=== PATIENT | male | born 1975 | race Caucasian/White ===

== ENCOUNTER 2017-10-07 07:38 | Emergency (ER) | payer SELFPAY ==
[~2017-10-07] VITALS: Ht 180.3 cm; Wt 73.0 kg
[2017-10-07 07:45] VITALS: BP 125/70; PULSE 88; RESP 16; TEMP 97.8; O2SAT 100
--- NOTE | 2017-10-07 07:53 | PD ---
HPI Chief Complaint: Syncope/Near-Syncope Time Seen by Provider: 07:46 Travel History International Travel<30 days: No Contact w/Intl Traveler<30days: No Traveled to known affect area: No History of Present Illness HPI LOCATION:sudden onset mason QUALITY:sharp/generalized head SEVERITY: 8/10 TIMING: about 1 hr ago DURATION:acute onset CONTACTS:denies MODIFYING FACTORS:no alleviating/aggravating factors ASSOCIATED TIME AND SYMPTOMS:patient after feeling mason for a few seconds then blacked out, this occurred at work and was witnessed by coworkers who deny seeing any tonic clonic activity, was out for a few seconds, 30sec max all:denies pmhx/pshx: denies any hx PFSH Social History Tobacco Use: No Allergies-Medications (Allergen,Severity, Reaction): Coded Allergies: No Known Allergies (Unverified , 10/07/17) Reported Meds & Prescriptions Reported Meds & Active Scripts Active Fioricet (Lsulebrkhi-Vlxaprxileofv-Ilzkfqfg) 50-300-40 Mg Cap 1-2 Cap PO Q6H PRN Augmentin (Amoxicillin-Clavulanate) 875-125 Mg Tab 1 Tab PO BID 10 Days Review of Systems General / Constitutional: No: Fever Eyes: No: Visual changes HENT: Positive: Headaches Cardiovascular: No: Chest Pain or Discomfort Respiratory: No: Shortness of Breath Gastrointestinal: No: Abdominal Pain Genitourinary: No: Dysuria Musculoskeletal: No: Pain Skin: No Rash Neurologic: Positive: Syncope Psychiatric: No: Depression Endocrine: No: Polydipsia Hematologic/Lymphatic: No: Easy Bruising Physical Exam Narrative GENERAL: male, fluent in macedonian and provided hx as well as followed commands very well SKIN: Warm and dry. HEAD: Atraumatic. Normocephalic. EYES: Pupils equal and round. No scleral icterus. No injection or drainage. ENT: No nasal bleeding or discharge. Mucous membranes pink and moist. NECK: Trachea midline. No JVD. CARDIOVASCULAR: Regular rate and rhythm. RESPIRATORY: No accessory muscle use. Clear to auscultation. Breath sounds equal bilaterally. GASTROINTESTINAL: Abdomen soft, non-tender, nondistended. Hepatic and splenic margins not palpable. MUSCULOSKELETAL: Extremities without clubbing, cyanosis, or edema. No obvious deformities. NEUROLOGICAL: Awake and alert. No obvious cranial nerve deficits. Motor grossly within normal limits. Five out of 5 muscle strength in the arms and legs. Normal speech. PSYCHIATRIC: Appropriate mood and affect; insight and judgment normal. Data Data Last Documented VS Vital Signs Date Time Temp Pulse Resp B/P (MAP) Pulse Ox O2 Delivery O2 Flow Rate FiO2 10/07/17 13:49 77 18 134/72 (92) 98 10/07/17 11:40 Room Air 10/07/17 07:45 97.8 Orders Orders Electrocardiogram (10/07/17 07:53) Complete Blood Count With Diff (10/07/17 07:53) Comprehensive Metabolic Panel (10/07/17 07:53) Troponin I (10/07/17 07:53) Act Partial Throm Time (Ptt) (10/07/17 07:53) Prothrombin Time / Inr (Pt) (10/07/17 07:53) Urinalysis - C+S If Indicated (10/07/17 07:53) Ct Brain W/O Iv Contrast(Rout) (10/07/17 07:53) Ecg Monitoring (10/07/17 07:53) Iv Access Insert/Monitor (10/07/17 07:53) Oximetry (10/07/17 07:53) Sodium Chloride 0.9% Flush (Ns Flush) (10/07/17 08:00) Cta Neck W Iv Contrast W 3d (10/07/17 07:53) Cta Brain W Iv Contrast W 3d (10/07/17 08:46) Acetamin-Codeine 300-30 Mg (Tylenol-Code (10/07/17 13:00) Ciprofloxacin (Cipro) (10/07/17 13:00) Ed Discharge Order (10/07/17 13:47) Iohexol 350 Inj (Omnipaque 350 Inj) (10/07/17 09:06) Labs Laboratory Tests Test 10/07/17 08:00 10/07/17 11:30 White Blood Count 5.7 TH/MM3 Red Blood Count 4.48 MIL/MM3 Hemoglobin 13.8 GM/DL Hematocrit 39.9 % Mean Corpuscular Volume 89.1 FL Mean Corpuscular Hemoglobin 30.8 PG Mean Corpuscular Hemoglobin Concent 34.6 % Red Cell Distribution Width 12.6 % Platelet Count 248 TH/MM3 Mean Platelet Volume 6.7 FL Neutrophils (%) (Auto) 66.7 % Lymphocytes (%) (Auto) 19.9 % Monocytes (%) (Auto) 13.0 % Eosinophils (%) (Auto) 0.1 % Basophils (%) (Auto) 0.3 % Neutrophils # (Auto) 3.8 TH/MM3 Lymphocytes # (Auto) 1.1 TH/MM3 Monocytes # (Auto) 0.7 TH/MM3 Eosinophils # (Auto) 0.0 TH/MM3 Basophils # (Auto) 0.0 TH/MM3 CBC Comment DIFF FINAL Differential Comment Prothrombin Time 11.1 SEC Prothromb Time International Ratio 1.1 RATIO Activated Partial Thromboplast Time 27.5 SEC Blood Urea Nitrogen 15 MG/DL Creatinine 1.01 MG/DL Random Glucose 100 MG/DL Total Protein 7.4 GM/DL Albumin 3.5 GM/DL Calcium Level 8.5 MG/DL Alkaline Phosphatase 79 U/L Aspartate Amino Transf (AST/SGOT) 16 U/L Alanine Aminotransferase (ALT/SGPT) 15 U/L Total Bilirubin 0.4 MG/DL Sodium Level 137 MEQ/L Potassium Level 4.2 MEQ/L Chloride Level 102 MEQ/L Carbon Dioxide Level 28.4 MEQ/L Anion Gap 7 MEQ/L Estimat Glomerular Filtration Rate 81 ML/MIN Troponin I LESS THAN 0.02 NG/ML Urine Color YELLOW Urine Turbidity CLEAR Urine pH 6.5 Urine Specific [place] GREATER THAN 1.050 Urine Protein 30 mg/dL Urine Glucose (UA) NEG mg/dL Urine Ketones NEG mg/dL Urine Occult Blood NEG Urine Nitrite NEG Urine Bilirubin NEG Urine Urobilinogen LESS THAN 2.0 MG/DL Urine Leukocyte Esterase NEG Urine RBC LESS THAN 1 /hpf Urine WBC LESS THAN 1 /hpf Urine Squamous Epithelial Cells <1 /hpf Urine Bacteria RARE /hpf Urine Mucus FEW /lpf Microscopic Urinalysis Comment CULT NOT INDICATED MDM Medical Decision Making Medical Screen Exam Complete: Yes Emergency Medical Condition: Yes Medical Record Reviewed: Yes Differential Diagnosis ich v aneurysm v Narrative Course Patient's CBC does not show any leukocytosis or any evidence of anemia at this present time. Normal electrolytes, normal liver and kidney functions. Normal coagulation factors studies. CT head is negative for any intracranial hemorrhage or mass, did show some sinus disease. CTA of the neck and brain did not show any aneurysm Diagnosis Primary Impression: sinusitis Additional Impression: Vasovagal syncope Patient Instructions: General Instructions, Sinusitis (ED) Scripts Deryzfkoym-Itnqlsiufmbrz-Ghvabusw (Fioricet) 50-300-40 Mg Cap 1-2 CAP PO Q6H Y for HEADACHE, #15 CAP 0 Refills Prov: Arturo Sarabia MD 10/07/17 Amoxicillin-Clavulanate (Augmentin) 875-125 Mg Tab 1 TAB PO BID for Infection for 10 Days, #20 TAB 0 Refills Prov: Arturo Sarabia MD 10/07/17 Disposition: 01 DISCHARGE HOME Condition: Stable Arturo Sarabia MD Oct 07, 2017 07:53
[2017-10-07] MEDS ORDERED: SODIUM CHLORIDE 0.9% FLUSH 10 ML FLUSH IVF PRN (08:00)
[2017-10-07 08:16] LABS: AUTOMATED NEUTROPHIL # 3.8 TH/MM3 (1.8-7.7); BASOPHIL % 0.3 % (0.0-2.0); EOSINOPHIL % 0.1 % (0.0-4.0); HEMATOCRIT 39.9 % (39.0-51.0); HEMOGLOBIN 13.8 GM/DL (13.0-17.0); LYMPH % 19.9 % (9.0-44.0); LYMPHOCYTE # 1.1 TH/MM3 (1.0-4.8); MEAN CELL VOLUME 89.1 FL (80.0-100.0); MEAN CORPUSCULAR HEMOGLOBIN 30.8 PG (27.0-34.0); MEAN CORPUSCULAR HGB CONC 34.6 % (32.0-36.0); MEAN PLATELET VOLUME 6.7 FL (7.0-11.0); MONOCYTE # 0.7 TH/MM3 (0-0.9); NEUT % 66.7 % (16.0-70.0); PLATELET COUNT 248 TH/MM3 (150-450); RED BLOOD COUNT 4.48 MIL/MM3 (4.50-5.90); RED CELL DISTRIBUTION WIDTH 12.6 % (11.6-17.2); WHITE BLOOD COUNT 5.7 TH/MM3 (4.0-11.0)
[2017-10-07 08:17] VITALS: O2SAT 98
[2017-10-07 08:24] LABS: INTERNATIONAL NORMALIZED RATIO 1.1 RATIO; PROTHROMBIN TIME - PATIENT 11.1 SEC (9.8-11.6)
[2017-10-07 08:33] LABS: ALBUMIN 3.5 GM/DL (3.4-5.0); ALT (GPT) 15 U/L (12-78); AST (GOT) 16 U/L (15-37); BICARBONATE 28.4 MEQ/L (21.0-32.0); BLOOD UREA NITROGEN 15 MG/DL (7-18); CALCIUM 8.5 MG/DL (8.5-10.1); CHLORIDE 102 MEQ/L (98-107); CREATININE 1.01 MG/DL (0.60-1.30); GLOMERULAR FILTRATION RATE 81 ML/MIN (>89); GLUCOSE,RANDOM 100 MG/DL (74-106); SODIUM (NA) 137 MEQ/L (136-145)
[2017-10-07 08:37] LABS: ALKALINE PHOSPHATASE 79 U/L (45-117); TOTAL BILIRUBIN ADULT 0.4 MG/DL (0.2-1.0); TOTAL PROTEIN 7.4 GM/DL (6.4-8.2); TROPONIN I LESS THAN 0.02 NG/ML (0.02-0.05)
[2017-10-07] MEDS ORDERED: IOHEXOL 350 MG/ML 10 ML VIAL (for RAD DIAG) IVCONTRAST ONE (09:06)
--- NOTE | 2017-10-07 09:23 | RADRPT ---
EXAM DATE/TIME: 10/07/2017 09:06 [facility] COMPARISON: No previous studies available for comparison. INDICATIONS : Dizziness. RADIATION DOSE: 64.83 CTDIvol (mGy) MEDICAL HISTORY : None SURGICAL HISTORY : Appendectomy. ENCOUNTER: Initial ACUITY: 1 day PAIN SCALE: 0/10 LOCATION: Bilateral head TECHNIQUE: Multiple contiguous axial images were obtained of the head. Using automated exposure control and adj ustment of the mA and/or kV according to patient size, radiation dose was kept as low as reasonably a chievable to obtain optimal diagnostic quality images. DICOM format image data is available electro nically for review and comparison. FINDINGS: Moderate periventricular white matter changes. No parenchymal hemorrhage, acute infarction or mass l esion Ventricle size is appropriate Posterior fossa unremarkable Minimal ethmoid and left maxillary sinus disease. CONCLUSION: Minimal sinus disease. Moderate periventricular white matter changes negative for in farct or mass. Gasper Dong MD FACR on October 07, 2017 at 9:21 Board Certified Radiologist. This report was verified electronically.
--- NOTE | 2017-10-07 10:07 | RADRPT ---
EXAM DATE/TIME: 10/07/2017 09:06 [facility] COMPARISON: No previous studies available for comparison. INDICATIONS : Dizziness. IV CONTRAST: 71 cc Omnipaque 350 (iohexol) IV RADIATION DOSE: 9.33 CTDIvol (mGy) MEDICAL HISTORY : None SURGICAL HISTORY : Appendectomy. ENCOUNTER: Initial ACUITY: 1 day PAIN SCALE: 0/10 LOCATION: Bilateral neck Elevated flow velocities and ICA/CCA ratios have been found to correlate with increased degrees of vessel stenosis, calculated as percentage of diameter relative to a normal segment of distal ICA/CCA. TECHNIQUE: Volumetric scanning was performed using a multirow detector CT scanner. The data was post processed with a variety of visualization algorithms including full-volume maximum intensity projection, multip lanar sliding thin-slab reformation, curved-planar reformation, and surface-rendering techniques. Us ing automated exposure control and adjustment of the mA and/or kV according to patient size, radiatio n dose was kept as low as reasonably achievable to obtain optimal diagnostic quality images. DICOM f ormat image data is available electronically for review and comparison. FINDINGS: AORTIC ARCH: There is a three-vessel origin of the great vessels from the aorta. No evidence of ostial narrowing. RIGHT CAROTID: The common carotid artery is intact. The carotid bulb has a normal configuration without ulceration o r narrowing. The internal carotid artery lumen is smooth without stenosis. The external carotid nicky ry is intact. LEFT CAROTID: The common carotid artery is intact. The carotid bulb has a normal configuration without ulceration or narrowing. The internal carotid artery lumen is smooth without stenosis. The external carotid ar duane is intact. VERTEBRALS: The vertebral arteries have a symmetric diameter. No stenotic lesions are seen. CONCLUSION: Normal examination. Rodney Hernandez MD on October 07, 2017 at 9:53 Board Certified Radiologist. This report was verified electronically.
--- NOTE | 2017-10-07 10:10 | RADRPT ---
EXAM DATE/TIME: 10/07/2017 09:06 [facility] COMPARISON: No previous studies available for comparison. INDICATIONS : Dizziness. IV CONTRAST: 71 cc Omnipaque 350 (iohexol) IV RADIATION DOSE: 9.33 CTDIvol (mGy) MEDICAL HISTORY : None SURGICAL HISTORY : Appendectomy. ENCOUNTER: Initial ACUITY: 1 day PAIN SCALE: 0/10 LOCATION: Bilateral head TECHNIQUE: Volumetric scanning was performed using a multi-row detector CT scanner. The data was post processed with a variety of visualization algorithms including full volume maximum intensity projection, multi -planar sliding thin slab reformation, curved planar reformation, and surface rendering techniques. Using automated exposure control and adjustment of the mA and/or kV according to patient size, radiat ion dose was kept as low as reasonably achievable to obtain optimal diagnostic quality images. DICO M format image data is available electronically for review and comparison. FINDINGS: There is excellent visualization of the major intracranial arteries out to the second-order branch ve ssels. There is no evidence for aneurysm, vessel truncation or stenosis, and no evidence for vascula r malformation. CONCLUSION: Normal examination. Rodney Hernandez MD on October 07, 2017 at 10:06 Board Certified Radiologist. This report was verified electronically.
[2017-10-07 11:40] VITALS: BP 119/74; PULSE 78; RESP 17; O2SAT 98
[2017-10-07] MEDS ORDERED: AUGM875T3 PO (11:44)
[2017-10-07] MEDS ORDERED: BUTA1CAP PO (11:44)
[2017-10-07 12:24] LABS: BACTERIA, URINE RARE /hpf; BILIRUBIN, URINE NEG (NEG); BLOOD, URINE NEG (NEG); GLUCOSE,URINE NEG (NEG); KETONE, URINE NEG (NEG); MUCUS URINE FEW /lpf (OCC); NITRITE,URINE NEG (NEG); PH, URINE 6.5 (5.0-8.5); SQUAMOUS EPITHELIAL CELL URINE <1 /hpf (0-5); URINE COLOR YELLOW (YELLW/STRAW); URINE LEUKOCYTE ESTERASE NEG (NEG)
[2017-10-07] MEDS ORDERED: CIPROFLOXACIN 500 MG TAB PO ONE (13:00)
[2017-10-07] MEDS ORDERED: ACETAMINOPHEN/CODEINE 300 MG/30 MG TAB PO ONE (13:00)
[2017-10-07 13:49] VITALS: BP 134/72
--- NOTE | 2017-10-07 22:00 | EKG ---
Date Performed: 10/07/2017 Time Performed: 07:51:41 PTAGE: 42 years EKG: Sinus rhythm NORMAL ECG NO PREVIOUS TRACING DOCTOR: Bayron Price Interpretating Date/Time 10/07/2017 21:56:43
== END 2017-10-07 13:53 | disposition home or self-care (01) ==
LOC: NEPC 07:38
DX: J32.9 Chronic sinusitis, unspecified (principal); R55 Syncope and collapse
CPT/HCPCS: 70450; 70496; 70498; 80053; 81001; 84484; 85025; 85610; 85730; 93005; 99285; Q9967